=== PATIENT | male | born 1980 | race Caucasian/White ===

== ENCOUNTER → 2019-11-19 13:46 | Outpatient (CLI) | payer OTHER, SELFPAY ==
--- NOTE | ~2019-11-19 | XR_ITS ---
XR foot RT 2V DATE: 11/19/2019 14:08 INDICATION: Soft tissue disorder TECHNIQUE: AP and lateral views of right foot COMPARISON: None FINDINGS: No fracture or dislocation, periosteal reaction or bone destruction. Joint spaces are relat ively preserved. No erosive change. IMPRESSION: No significant abnormality Reviewed, dictated and finalized at location B. IMPRESSION: No significant abnormality
== END ==
PROVIDERS: PCP Family Medicine; Visit Provider Nurse Practitioner Family
DX: M79.89 Other specified soft tissue disorders (principal)
CPT/HCPCS: 73620

== ENCOUNTER 2020-01-18 11:45 | Emergency (ER) | payer OTHER, SELFPAY ==
--- NOTE | ~2020-01-18 | XR_ITS ---
EXAMINATION: XR knee LT min 4V DATE: 01/18/2020 12:44 INDICATION: Left knee pain and swelling. TECHNIQUE: 4 views of left knee were obtained. COMPARISON: None. FINDINGS: There is lateral subluxation of patella. No fracture. There is mild osteoarthritis of carrillo lofemoral compartment. There is a moderate-sized knee joint effusion. IMPRESSION: 1. Mild left knee osteoarthritis. Moderate-sized left knee joint effusion. Reviewed, dictated and finalized at location A. BLER
[2020-01-18 11:57] VITALS: BP 155/96; PULSE 88; RESP 18; TEMP 36.5; O2SAT 99
--- NOTE | 2020-01-18 12:17 | ED.LOWEXIN ---
HPI - Extremity Injury (Lower) General Chief Complaint: Extremity Injury, Lower Stated Complaint: L/knee pain Time Seen by Provider: 01/18/20 12:17 Source: patient and RN notes reviewed Mode of arrival: ambulatory Limitations: no limitations History of Present Illness HPI Narrative: 39-year-old male presents to express care on crutches with complaints of left knee pain and swelling since . 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 Patient states on morning he had pain and swelling to the left knee making it difficult for him to even get out of bed. He states swelling and pain have decreased since , he is taken some Aleve and has been wearing a neoprene sleeve to his left knee which has decreased the swelling. He has been walking with minimal to no weightbearing on his left leg using crutches. Patient has point tenderness noted to the medial aspect of his patella with noted swelling to his knee. MD complaint: knee injury and other (knee pain and swelling) Onset (ago): day(s) (Since ) Injury: Left: knee (left knee) Type of Injury: unknown Place: other (unsure of specific injury) Severity: moderate Severity scale (1-10): 5 Relieving factors: cold therapy and rest Exacerbating factors: weight bearing and movement Context: other (unsure of injury) Associated symptoms: swelling, able to partially bear weight and other (pain to knee) Other symptoms: none Treatments prior to arrival: cold therapy, NSAIDS and other (neoprene sleeve and crutches) Related Data Home Medications Medication Instructions Recorded Confirmed No Home Medications 01/18/20 01/18/20 Allergies Allergy/AdvReac Type Severity Reaction Status Date / Time No Known Allergies Allergy Verified 01/18/20 12:00 Review of Systems Review of Systems: Narrative: CONSTITUTIONAL: Denies fever, chills, or sweats. EYES: Denies visual changes, redness, or discharge. ENT: Denies rhinorrhea, congestion, sore throat, or otalgia. CARDIOVASCULAR: Denies chest pain, palpitations, or edema. RESPIRATORY: Denies cough or dyspnea. GASTROINTESTINAL: Denies abdominal pain, nausea, vomiting, or diarrhea. GENITOURINARY: Denies dysuria or hematuria. SKIN: Denies rash or itching. MUSCULOSKELETAL: Denies back pain,positive for left knee pain with swelling no warmth noted. NEUROLOGIC: Denies headache, numbness, or weakness. PSYCHIATRIC: Positive history of anxiety or depression. All systems reviewed & are unremarkable except as noted in HPI and below PMFSH Past Medical History Medical History (Updated 01/18/20 @ 13:50 by Tracy Stark NP) Anxiety Family History Family History Father Family history of diabetes mellitus in first degree relative Social History Social History (Updated 01/18/20 @ 13:50 by Tracy Stark NP) Smoking status: Never smoker Alcohol intake: current Substance use: never Living arrangements: with family Gender identity (if verbalized by the patient): Male Comments At time of signature, agree with nursing past medical, surgical, social and family history. There is no relevant family history pertinent to the presenting complaint Exam Narrative: Exam Narrative: GENERAL: Well-appearing, well-nourished, and in no acute distress. HEAD: Normocephalic, atraumatic. EYES: PERRLA and EOMI. ENT: Nares clear, no rhinorrhea or epistaxis. Mucous membranes moist. NECK: Supple.no lymphadenopathy CHEST: Clear to auscultation. No respiratory distress.SAO2 99% on room air HEART: Regular rate and rhythm. No murmur heard. Normal peripheral pulses. ABDOMEN: Soft, nontender, nondistended, normal active bowel sounds. EXTREMITIES: Normal range of motion. No edema.Exception to left knee with noted swelling and stated pain to left knee. Patient nolasco
== END 2020-01-18 13:26 | disposition home or self-care (01) ==
PROVIDERS: Emergency Provider Registered Nurse; PCP Family Medicine
DX: M25.462 Effusion, left knee (principal); M25.562 Pain in left knee
CPT/HCPCS: 73564; 99213; G0463

== ENCOUNTER 2020-01-20 12:15 | Outpatient (CLI) | payer OTHER, SELFPAY ==
[2020-01-20 13:42] LABS: Basophils Absolute Auto 0.1 K/mm3 (0.0-0.1); Basophils Percent Auto 0.4 % (0.2-1.2); Eosinophils Absolute Auto 0.2 K/mm3 (0-0.3); Hematocrit 44.2 % (42.0-52.0); Hemoglobin 15.1 g/dL (14.0-18.0); Immature Granulocyte Absolute 0.04 K/mm3 (0.00-0.031); Immature Granulocyte Percent A 0.3 % (0-0.5); Lymphocytes Absolute Auto 2.01 K/mm3 (0.9-3.2); Lymphocytes Percent Auto 17.1 % (18.3-44.2); Mean Corpuscular HGB Conc 34.2 g/dl (32-36); Mean Corpuscular Hemoglobin 29.8 pg (26-34); Mean Corpuscular Volume 87.2 fl (80-100); Mean Platelet Volume 9.1 fl (7.4-10.4); Monocytes Absolute Auto 0.6 K/mm3 (0.1-0.6); Monocytes Percent Auto 5.4 % (2.6-8.5); Neutrophils Absolute Auto 8.8 K/mm3 (1.3-6.7); Neutrophils Percent Auto 74.8 % (45.5-73.1); Platelet Count Result 436 k/mm3 (150-375); Red Blood Count 5.07 M/mm3 (4.6-6.20); Red Cell Distribution Width 12.2 % (11.5-14.5); White Blood Count 11.8 K/mm3 (4.5-10.0)
[2020-01-20 13:59] LABS: Uric Acid 9.9 mg/dL (3.5-8.5)
[2020-01-20 14:05] LABS: Erythrocyte Sedimentation Rate 20 mm/hr (0-20)
[2020-01-20 15:00] LABS: Appearance Synovial Fluid Cloudy (Clear); Color Synovial Fluid Red (Colorless); Lymphocytes Synovial Fluid 6 %; Monocytes Synovial Fluid 7 %; Neutrophils Synovial Fluid 87 % (0-25); Nucleated Cell Synovial Fluid 7432 /uL (0-200); RBC Synovial Fluid 30225 /uL (0-0); Source Synovial Fluid Synovial fluid
[2020-01-20 15:01] LABS: Crystals Synovial Fluid Few Msu (None Seen)
== END 2020-01-20 12:16 | disposition home or self-care (01) ==
PROVIDERS: PCP Family Medicine; Visit Provider Orthopaedic Surgery
DX: M10.9 Gout, unspecified (principal); M25.462 Effusion, left knee
CPT/HCPCS: 36415; 84550; 85025; 85652; 87070; 87075; 87205; 89051; 89060

== ENCOUNTER 2020-02-29 15:53 | Outpatient (CLI) | payer OTHER, SELFPAY ==
[2020-02-29 16:47] LABS: Anion Gap 8 mmol/L (8-16); Blood Urea Nitrogen 14 mg/dL (9-20); Calcium 9.2 mg/dL (8.4-10.2); Carbon Dioxide 28 mmol/L (22-30); Chloride 102 mmol/L (98-107); Estimated Glomerular Filt Rate > 60; Glucose 94 mg/dL (75-110); Potassium 3.9 mmol/L (3.4-5.0); Sodium 138 mmol/L (137-145); Uric Acid 6.8 mg/dL (3.5-8.5)
== END 2020-02-29 15:54 | disposition home or self-care (01) ==
LOC: ANHLAB 15:55
PROVIDERS: PCP Family Medicine; Visit Provider Family Medicine
DX: M10.062 Idiopathic gout, left knee (principal)
CPT/HCPCS: 36415; 80048; 84550

== ENCOUNTER → 2020-03-08 10:44 | Outpatient (CLI) | payer OTHER, SELFPAY ==
--- NOTE | ~2020-03-08 | XR_ITS ---
EXAMINATION: XR knee LT 2V DATE: 03/08/2020 11:04 INDICATION: Left knee pain. TECHNIQUE: 2 views of left knee were obtained. COMPARISON: Left knee radiographs 01/18/2020 FINDINGS: Bone alignment is normal. No fracture. There is mild tricompartmental osteoarthritis. There is a small knee joint effusion. IMPRESSION: 1. Mild left knee osteoarthritis. 2. Small left knee joint effusion. Reviewed, dictated and finalized at location B. [employer]GER
== END ==
PROVIDERS: PCP Family Medicine; Visit Provider Nurse Practitioner Family
DX: M17.12 Unilateral primary osteoarthritis, left knee (principal); M25.462 Effusion, left knee
CPT/HCPCS: 73560

== ENCOUNTER → 2021-03-01 02:16 | Outpatient (CLI) | payer OTHER, SELFPAY ==
[2021-03-01 21:19] LABS: SARS-CoV-2 RNA PCR Negative
== END ==
PROVIDERS: PCP Family Medicine; Visit Provider Family Medicine
DX: R51.9 Headache, unspecified (principal); R05.9 Cough, unspecified; R09.81 Nasal congestion; Z20.822 Contact with and (suspected) exposure to COVID-19
CPT/HCPCS: C9803; U0003; U0005

== ENCOUNTER → 2021-06-08 07:59 | Outpatient (CLI) | payer OTHER, SELFPAY ==
--- NOTE | ~2021-06-08 | XR_ITS ---
EXAMINATION: XR knee RT 2V DATE: 06/08/2021 08:31 INDICATION: Right knee stiffness. TECHNIQUE: 2 views of right knee standing were obtained. COMPARISON: None. FINDINGS: Bone alignment is normal. No fracture. Joint spaces are normal. No knee joint effusion. IMPRESSION: 1. Normal right knee. Reviewed, dictated and finalized at location B. IMPRESSION: 1. Normal right knee.
--- NOTE | ~2021-06-08 | XR_ITS ---
EXAMINATION: XR knee LT 2V DATE: 06/08/2021 08:31 INDICATION: Left knee pain. TECHNIQUE: 2 views of left knee standing were obtained. COMPARISON: Left knee radiographs 03/08/2020 FINDINGS: Bone alignment is normal. No fracture. There is mild osteoarthritis of lateral and patellof emoral compartments characterized by tiny osteophytes. No joint space narrowing. No knee joint effusi on. IMPRESSION: 1. Mild left knee osteoarthritis. Reviewed, dictated and finalized at location B.
== END ==
PROVIDERS: Visit Provider Nurse Practitioner Family
DX: M17.12 Unilateral primary osteoarthritis, left knee (principal); M25.662 Stiffness of left knee, not elsewhere classified; M25.661 Stiffness of right knee, not elsewhere classified
CPT/HCPCS: 73560

== ENCOUNTER 2022-08-24 18:37 | Emergency (ER) | payer OTHER, SELFPAY ==
[2022-08-24 19:01] VITALS: BP 179/126; PULSE 85; RESP 18; TEMP 37.2; O2SAT 98
--- NOTE | 2022-08-24 19:28 | ED.SKABFB ---
HPI - Skin/Abscess/Foreign Bdy General Chief complaint: Skin/Abscess/Foreign Body Stated complaint: cyst on chin Time Seen by Provider: 08/24/22 18:59 Source: patient and RN notes reviewed Mode of arrival: ambulatory Limitations: no limitations History of Present Illness HPI narrative: Patient presents today complaining of a ruptured abscess on his right chin. This is test been present for 3 days then he accidentally struck his chin with his hand last night and it ruptured open draining watery brown fluid. He has been taking diclofenac with some relief of pain. He had 1 episode of something similar to this approximately 20 years ago and had to be placed on antibiotics, but none since that time. Related Data Allergies Allergy/AdvReac Type Severity Reaction Status Date / Time No Known Allergies Allergy Verified 08/24/22 18:59 Review of Systems Review of Systems: CONSTITUTIONAL: Denies body aches, fever, chills, or sweats. EYES: Denies visual changes, redness, or discharge. ENT: Denies rhinorrhea, congestion, sore throat, or otalgia. CARDIOVASCULAR: Denies chest pain, palpitations, or edema. RESPIRATORY: Denies cough or dyspnea. GASTROINTESTINAL: Denies abdominal pain, nausea, vomiting, or diarrhea. GENITOURINARY: Denies dysuria or hematuria. SKIN: + chin abscess MUSCULOSKELETAL: Denies back pain, joint pain, or myalgia. NEUROLOGIC: Denies headache, numbness, tingling, or weakness. PSYCH: Denies depression or anxiety. [facility] Past Medical History Medical History Acute bronchitis due to other specified organisms Acute gout of left knee Acute pain of left knee Acute pharyngitis, unspecified Acute sinusitis, unspecified Adult BMI 37.0-37.9 kg/sq m Anxiety Bacterial conjunctivitis of right eye BMI 34.0-34.9,adult BMI 36.0-36.9,adult BMI over 35 Dietary counseling and surveillance (12/27/14) Elevated liver enzymes Encounter for screening for lipoid disorders Essential (primary) hypertension Gout Male infertility Mixed hyperlipidemia Sprain of unspecified ligament of right ankle, initial encounter Family History Family History Father Family history of diabetes mellitus in first degree relative Heart disease Pacemaker Unknown Heart disease Arthritis Mother No problems noted. 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 Please see nursing chart for further information. There is no relevant family history pertinent to the presenting complaint Exam Narrative: GENERAL: Well-appearing, well-nourished, and in no acute distress. HEAD: Normocephalic, atraumatic. EYES: EOMI. No redness or drainage. Conjunctivae normal. ENT: Mucous membranes pink and moist. NECK: Normal AROM. CHEST: No respiratory distress. EXTREMITIES: Normal range of motion. No edema. SKIN: Warm, dry, no rash. Capillary refill normal. Normal skin turgor. Approximately 2 cm round erythematous excoriated moist area to the right chin. Fluctuant with induration around the edges. Tender to palpation. NEURO: No focal deficits. Alert and oriented x3. Gait steady. PSYCH: Normal affect. No signs of depression or anxiety. Course Course Level of Care: Express Care Visit Vital Signs Vital signs: Vital Signs Temperature 98.9 F 08/24/22 19:01 Pulse Rate 85
[2022-08-24 19:57] VITALS: BP 164/104
== END 2022-08-24 19:42 | disposition home or self-care (01) ==
PROVIDERS: Emergency Provider Nurse Practitioner; PCP Family Medicine
DX: L02.01 Cutaneous abscess of face (principal); I10 Essential (primary) hypertension; M10.9 Gout, unspecified; E78.2 Mixed hyperlipidemia
CPT/HCPCS: 10060; 99213; G0463

== ENCOUNTER 2023-12-31 08:09 | Emergency (ER) | payer OTHER, SELFPAY ==
--- NOTE | ~2023-12-31 | XR_ITS ---
EXAMINATION: XR ankle RT min 3V, XR foot RT min 3V DATE: 12/31/2023 09:13 INDICATION: Lateral right foot and ankle pain post injury with palpable pop. TECHNIQUE: 1. Anteroposterior, mortise, additional oblique and lateral view of the right ankle were obtained. 2. Dorsoplantar, two oblique and lateral views of the right foot were obtained. COMPARISON: None. FINDINGS: Alignment of the right foot and ankle is normal. No fracture. Mild osteoarthritis at the first metata rsophalangeal and a few of the interphalangeal joints. No ankle joint effusion. Small plantar calcane al spur. Soft tissue swelling about the ankle and hindfoot including over the medial and lateral mall eoli. IMPRESSION: 1. No acute osseous abnormality. Reviewed, dictated and finalized at location B. HEALTH CLINICAL LIAISON IMPRESSION: 1. No acute osseous abnormality.
--- NOTE | 2023-12-31 08:20 | ED_ITS ---
HPI - Extremity Injury (Lower) General Chief Complaint: Extremity Injury, Lower Stated Complaint: RT Foot Pain Time Seen by Provider: 12/31/23 08:43 Source: patient, RN notes reviewed and old records reviewed Mode of arrival: ambulatory Limitations: no limitations History of Present Illness HPI Narrative: 43 yo male presents to the [facility] with C/O right foot pain. Patient reports lateral right pain, lateral right ankle discomfort. Patient states that over the weekend he felt a pop in the lateral dorsal foot. No bruising or swelling noted. Positive radial pulse. Sensation intact. Patient reports a history of gout, states he normally gets it in his knee. No redness, swelling. Patient arrived on crutches Onset (ago): day(s) (3-4) Related Data Allergies Allergy/AdvReac Type Severity Reaction Status Date / Time No Known Allergies Allergy Verified 08/24/22 18:59 Review of Systems Review of Systems: All systems reviewed & are unremarkable except as noted in HPI and below Constitutional: Constitutional: Reports no additional constitutional complaints ENT: Reports system reviewed and no additional complaints, except as documented Cardiovascular: Cardiovascular: Reports no additional cardiovascular complaints, Denies chest pain and Denies dyspnea Respiratory: Respiratory: Reports no additional respiratory complaints, Denies chest congestion, Denies cough and Denies dyspnea Gastrointestinal: Gastrointestinal: Reports no additional gastrointestinal complaints, Denies abdominal pain, Denies nausea and Denies vomiting Musculoskeletal: Musculoskeletal: Reports as per HPI Integumentary/Breasts: Skin/Breast: Reports system reviewed and no additional complaints, except as docu PMFSH Past Medical History Medical History Acute bronchitis due to other specified organisms Acute gout of left knee Acute pain of left knee Acute pharyngitis, unspecified Acute sinusitis, unspecified Adult BMI 37.0-37.9 kg/sq m Anxiety Bacterial conjunctivitis of right eye BMI 34.0-34.9,adult BMI 36.0-36.9,adult BMI over 35 Dietary counseling and surveillance (12/27/14) Elevated liver enzymes Encounter for screening for lipoid disorders Essential (primary) hypertension Gout Male infertility Mixed hyperlipidemia Sprain of unspecified ligament of right ankle, initial encounter Family History Family History Father Family history of diabetes mellitus in first degree relative Heart disease Pacemaker Unknown Heart disease Arthritis Mother No problems noted. 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 There is no relevant family history pertinent to the patient complaint. Exam Const: General: cooperative, healthy appearing, comfortable, no acute distress, well developed, alert and well nourished Nutritional Appearance: well nourished Orientation/consciousness: patient oriented x3 Limitations: no limitations HENMT: Head: normal to inspection Ears: hearing grossly normal bilaterally and external ears normal Face/Nose/Sinus: Normal external nose present, normal facial exam and face symmetric Face and sinus: normal facial exam and face symmetric Eyes: General: appearance normal, both eyes and all related structures Alignment and Position: alignment normal Periorbital: periorbital findings normal Neck: Neck: normal visual inspection, full ROM, no lymphadenopathy and no meningeal signs Chest: Chest palpation & inspection: normal inspection of the chest Resp: Effort & Inspection: normal respiratory effort and able to speak in complete sentences Cardio: Rate: regular rate Skin: General skin exam: normal color and no rashes or lesions noted Lesions: no lesions Rashes: no rashes Wounds: no wounds Neuro: General: patient oriented x3, gait normal, tone normal, moves all extremities and no meningeal signs Cognition (Neuro): normal cognition Speech: normal speech Gait exam (Neuro): Normal gait present Extrem: General: normal to inspection, full ROM, capillary refill normal and normal gait Right lower extremity: full ROM, normal capillary refill, ankle Details: tenderness Location: of the lateral malleolus and foot Details: normal capillary refill and tenderness Location: of the lateral foot; no edema Psych: Appearance: grossly normal and well kempt Mental Status: mental status grossly normal Speech and movement: Normal speech and movement present and Clear speech present Affect: normal affect Attitude: cooperative Course Course Level of Care: Express Care Visit Vital Signs Vital signs: Vital Signs Temperature 97.3 F L 12/31/23 08:23 Pulse Rate 85 12/31/23 08:23 Respiratory Rate 16 12/31/23 08:23 Blood Pressure 166/115 H 12/31/23 08:23 Pulse Oximetry 99 12/31/23 08:23 Oxygen Delivery Room Air 12/31/23 08:23 Temperature 97.3 F L 12/31/23 08:23 Pulse Rate 85 12/31/23 08:23 Respiratory Rate 16 12/31/23 08:23 Blood Pressure 166/115 H 12/31/23 08:23 Pulse Oximetry 99 12/31/23 08:23 Oxygen Delivery Room Air 12/31/23 08:23 Reviewed MDM - Extremity Injury (Lower) MDM Narrative Medical decision making narrative: Patient sitting comfortably in exam room. Nontoxic, vitals stable. Patient presents with lateral right foot pain, right ankle pain. No bruising or swelling noted. Denies any injury. X-ray showed no acute findings. Patient appropriate for outpatient treatment and follow-up Discharge instructions reviewed with patient, as well as provided in writing per nursing staff. The instructions also include specific and strict return/GO TO THE ER as well as f/u information. All questions have been answered, and the patient deny any further questions with discharge and discharge plan. Some parts of this dictation were generated by voice recognition software and may contain typographical and/or grammatical inaccuracies. Differential Diagnosis Differential diagnosis: Likely ankle sprain and strain and other (Foot fracture, gout) Imaging Data Radiologist's impression: EXAMINATION: XR ankle RT min 3V, XR foot RT min 3V DATE: 12/31/2023 09:13 INDICATION: Lateral right foot and ankle pain post injury with palpable pop. TECHNIQUE: 1. Anteroposterior, mortise, additional oblique and lateral view of the right ankle were obtained. 2. Dorsoplantar, two oblique and lateral views of the right foot were obtained. COMPARISON: None. FINDINGS: Alignment of the right foot and ankle is normal. No fracture. Mild osteoarthritis at the first metatarsophalangeal and a few of the interphalangeal joints. No ankle joint effusion. Small plantar calcaneal spur. Soft tissue swelling about the ankle and hindfoot including over the medial and lateral malleoli. IMPRESSION: 1. No acute osseous abnormality. Critical Care Time Critical Care Time Critical Care Time: No Discharge Plan Discharge Clinical Impression: Ankle sprain, Acute pain of right foot Patient Disposition: Home, Self-Care Condition: Stable Instructions: Antibiotic Form, Ankle Sprain (ED), Arthralgia (ED) Additional Instructions: Today your blood pressure was 166/15. It is highly recommended follow-up with your primary care provider in the next 2 weeks to have this rechecked. Untreated or undertreated blood pressure can lead to more serious health issues. Your Xray did not show a fracture. Wear good supportive shoes at all times. Ice should be applied to help reduce swelling. It can be used for 20 to 30 minutes, every 2-3 hours while awake. Do not apply ice directly to your skin. ankle braces or sangita-wraps will help support your injured ankle. Take indomethacin prescribed Please schedule a follow-up visit with your personal physician for further evaluation and treatment within 2 weeks especially if symptoms persist. For new or worsening symptoms go directly to the emergency room Patient Language: Citizen Of The [place] Prescriptions: New indomethacin 50 mg capsule 50 mg PO TID Qty: 21 0RF Rx Instructions: administer with food or milk No Action allopurinol 300 mg tablet 300 mg PO DAILY Qty: 30 5RF Follow-up/Referrals: Chilango Smith Jr., DPM [Physician] - Benjamin Richard MD [Primary Care Provider] - Kee Bolivar DPM [Physician] - Stand Alone Forms: Work/School Release IP Time of Disposition: 09:25
[2023-12-31 08:23] VITALS: BP 166/115; PULSE 85; RESP 16; TEMP 36.3; O2SAT 99
== END 2023-12-31 09:38 | disposition home or self-care (01) ==
PROVIDERS: Emergency Provider Nurse Practitioner; PCP Family Medicine
DX: S93.401A Sprain of unspecified ligament of right ankle, initial encounter (principal); X58.XXXA Exposure to other specified factors, initial encounter; M79.671 Pain in right foot; M10.9 Gout, unspecified; I10 Essential (primary) hypertension; E78.2 Mixed hyperlipidemia
CPT/HCPCS: 73610; 73630; 99213; G0463

== ENCOUNTER 2024-02-29 09:37 | Outpatient (CLI) | payer OTHER, SELFPAY ==
--- NOTE | ~2024-02-29 | XR_ITS ---
XR lumbar spine 2-3V DATE: 02/29/2024 10:16 INDICATION: Hip pain TECHNIQUE: AP, lateral, coned lateral lumbosacral views COMPARISON: None FINDINGS: There are 4 functional lumbar vertebra and a transitional lumbosacral vertebra. There is mild to moderate degenerative disc disease of the lumbar spine with mild lumbar vertebral saranya dy spurring. No fracture or bone destruction is evident. Included lower thoracic and lumbar pedicles are intact. The sacral iliac joints are intact. IMPRESSION: Transitional lumbosacral vertebra Mild to moderate lumbar degenerative disc disease Reviewed, dictated and finalized at location A. T SHOP HELPER
--- NOTE | ~2024-02-29 | XR_ITS ---
XR hip LT min 2V DATE: 02/29/2024 10:16 INDICATION: Left hip pain TECHNIQUE: AP and lateral views COMPARISON: None FINDINGS: No fracture or dislocation, avascular necrosis or bone destruction. Left hip joint space is well preserved. IMPRESSION: Negative Reviewed, dictated and finalized at location A. ICE INSPECTOR IMPRESSION: Negative
== END 2024-02-29 09:38 | disposition home or self-care (01) ==
LOC: MICIMG 09:37
PROVIDERS: PCP Family Medicine; Visit Provider Nurse Practitioner Adult Health
DX: Q76.49 Other congenital malformations of spine, not associated with scoliosis (principal); M51.369 Other intervertebral disc degeneration, lumbar region without mention of lumbar back pain or lower extremity pain
CPT/HCPCS: 72100; 73502